=== PATIENT | female | born 1960 | race African-American/Black ===

== ENCOUNTER 2018-06-16 10:31 | Inpatient (IN) | payer OTHER ==
[2018-06-16 12:44] VITALS: BMI 22.4
--- NOTE | 2018-06-16 13:14 | HP ---
COWS - Scale Resting Pulse: 0= [place] 80 or Below Sweatin= Chills/Flushing Restless Observation: 3= Extraneous Movement Pupil Size: 1= Pupils >than Normal Bone or Joint Aches: 2= Severe Diffuse Aches Runny Nose/ Eye Tearin= Runny Nose/Eyes GI Upset > 30mins: 2= Nausea/Diarrhea Tremor Observation: 2= Slight Tremor Visible Yawning Observation: 2= >3x During Session Anxiety or Irritability: 2=Irritable/Anxious Goose Flesh Skin: 0=Smooth Skin COWS Score: 17 CIWA Score Nausea/Vomitin Muscle Tremors: 2 Anxiety: 2 Agitation: 2 Paroxysmal Sweats: 1-Minimal Palms Moist Orientation: 0-Oriented Tacttile Disturbances: 1-Very Mild Itch/Numbness Auditory Disturbances: 1-Very Mild Visual Disturbances: 0-None Headache: 2-Mild CIWA-Ar Total Score: 13 - Admission Criteria [facility] Guidelines: Admission for Medically Managed Detox: Requires at least one of the followin. CIWA greater than 12 2. Seizures within the past 24 hours 3. Delirium tremens within the past 24 hours 4. Hallucinations within the past 24 hours 5. Acute intervention needed for co occurring medical disorder 6. Acute intervention needed for co occurring psychiatric disorder 7. Severe withdrawal that cannot be handled at a lower level of care (continued vomiting, continued diarrhea, abnormal vital signs) requiring intravenous medication and/or fluids 8. Patient presents the following: CIWA greater than 12 Admission Criteria Met: Admission criteria met Admission ROS S - [facility] Chief Complaint: i need help to stop using heroin,xanax Allergies/Adverse Reactions: Allergies Allergy/AdvReac Type Severity Reaction Status Date / Time No Known Allergies Allergy Verified 06/16/18 16:42 History of Present Illness: this 58 years old female with heroin and xanax dependence,seeking detox, withdrawal symptom,last treatment in rehab 07/04/13 to 08/01/13 [facility] hypertension nicotine dependence weight loss longest sobriety 8 months hiv since 2002 Exam Limitations: No Limitations - Ebola screening Have you traveled outside of the country in the last 21 days: No (N) Have you had contact with anyone from an Ebola affected area: No Have you been sick,other than usual withdrawal symptoms: No Do you have a fever: No - Review of Systems Constitutional: Chills, Loss of Appetite, Malaise, Night Sweats, Changes in sleep, Weakness, Unintentional Wgt. Loss EENT: reports: Tearing, Nose Congestion Respiratory: reports: No Symptoms reported Cardiac: reports: No Symptoms Reported GI: reports: Nausea, Poor Appetite, Abdominal cramping : reports: No Symptoms Reported Musculoskeletal: reports: Back Pain, Joint Pain, Muscle Pain, Joint Stiffness Integumentary: reports: Dryness Neuro: reports: Headache, Tremors Endocrine: reports: No Symptoms Reported Hematology: reports: No Symptoms Reported Psychiatric: reports: No Sypmtoms Reported, Judgement Intact, Mood/Affect Appropiate, Orientated x3, Agitated (insomnia) Patient History - Patient Medical History Hx Anemia: No Hx Asthma: No Hx Chronic Obstructive Pulmonary Disease (COPD): No Hx Cancer: No Hx Cardiac Disorders: No Hx Congestive Heart Failure: No Hx Hypertension: Yes (onmed) Hx Pacemaker: No HX Cerebrovascular Accident: No Hx Seizures: No Hx Dementia: No Hx Diabetes: No Hx Gastrointestinal Disorders: No Hx Liver Disease: No Hx Genitourinary Disorders: No Hx Sexually Transmitted Disorders: No Hx Renal Disease (ESRD): No Hx Thyroid Disease: No Hx Human Immunodeficiency Virus (HIV): Yes (2002-tx'ed at [facility]-on tx can't recall names ) Hx Hepatitis C: No Hx Depression: No Hx Suicide Attempt: No Hx Bipolar Disorder: No Hx Schizophrenia: No Other Medical History: no suicidal,no homicidal - Patient Surgical History Past Surgical History: No - PPD History Previous Implant?: Yes Documented Results: Negative w/o proof Implanted On Prior [facility] Admission?: Yes Date: 07/06/13 PPD to be Administered?: Yes - Reproductive History Last Menstrual Period: 07/03/07 Patient : No - Smoking Cessation Smoking history: Current every day smoker Have you smoked in the past 12 months: Yes Aproximately how many cigarettes per day: 4 Cigars Per Day: 0 Hx Chewing Tobacco Use: No Initiated information on smoking cessation: Yes 'Breaking Loose' booklet given: 06/16/18 - Substance & Tx. History Hx Alcohol Use: No Hx Substance Use: Yes Substance Use Type: Heroin, Tranquilizers Hx Substance Use Treatment: Yes ([facility] rehab 07/01/13 to 08/01/13) - Substances Abused Heroin Route: Injection Frequency: Daily Amount used: 5 bags Age of first use: 58 Date of Last Use: 06/16/18 Alprazolam (Xanax) Route: Oral Frequency: 1-3 times last 30 days Amount used: 2 mgs Age of first use: 58 Date of Last Use: 06/11/18 Family Disease History - Family Disease History Family Disease History: Diabetes: Mother, Other: Sister (chrons disease ) Admission Physical Exam [facility] - Vital Signs Vital Signs: Vital Signs - 24 hr 06/16/18 12:36 Temperature 97.8 F Pulse Rate 62 Respiratory 18 Rate Blood Pressure 120/71 - Physical General Appearance: Yes: Moderate Distress, Tremorous, Irritable, Sweating, Anxious HEENTM: Yes: Pharynx Normal Respiratory: Yes: Lungs Clear, Normal Breath Sounds, No Respiratory Distress Neck: Yes: Within Normal Limits, Supple, Trachea in good position Breast: Yes: Breast Exam Deferred Cardiology: Yes: Within Normal Limits, Regular Rhythm, Regular Rate, S1, S2 Abdominal: Yes: Within Normal Limits, Normal Bowel Sounds, Non Tender, Flat, Soft Genitourinary: Yes: Within Normal Limits Back: Yes: Muscle Spasm Musculoskeletal: Yes: Back pain, Joint Stiffness, Muscle Pain Extremities: Yes: Tremors Neurological: Yes: product sales representative II-XII NML intact, Fully Oriented, Alert, Motor Strength 5/5 Integumentary: Yes: Dry, Track Angulo Lymphatic: Yes: Within Normal Limits - Diagnostic (1) Opioid dependence with withdrawal Current Visit: Yes Status: Acute (2) Uncomplicated sedative, hypnotic or anxiolytic withdrawal Current Visit: Yes Status: Acute (3) Essential hypertension Current Visit: Yes Status: Acute (4) HIV (human immunodeficiency virus infection) Current Visit: No Status: Acute (5) Weight loss Current Visit: Yes Status: Acute (6) Insomnia Current Visit: Yes Status: Acute Cleared for Admission [facility] - Detox or Rehab [facility] Level of Care: Medically Managed Detox Regimen/Protocol: Methadone [facility] Breath Alcohol Content Breath Alcohol Content: 0 Urine Drug Screen - Results Drug Screen Negative: No Urine Drug Screen Results: OPI-Opiates, BZO-Benzodiazepines, OXY-Oxycodone
[2018-06-16] MEDS ORDERED: LOPERAMIDE HCL 2 MG CAPSULE PO PRN (13:34)
[2018-06-16] MEDS ORDERED: MAG HYDROX/AL HYDROX/SIMETH 30 ML UNIT-DOSE CUP PO PRN (13:34)
[2018-06-16] MEDS ORDERED: MAGNESIUM CITRATE 300 ML BOTTLE PO PRN (13:34)
[2018-06-16] MEDS ORDERED: ACETAMINOPHEN 325 MG TABLET (FP) PO PRN (13:34)
[2018-06-16] MEDS ORDERED: MAGNESIUM HYDROX 2400MG/30ML ORAL SUSPENSION 30 ML CUP PO PRN (13:34)
[2018-06-16] MEDS ORDERED: P-EPHED 60MG/TRIPROLIDI 2.5MG TABLET PO PRN (13:34)
[2018-06-16] MEDS ORDERED: guaiFENesin/D-METHORPHAN HB 10 ML UNIT-DOSE CUPS PO PRN (13:34)
[2018-06-16] MEDS ORDERED: MENTHOL/PHENOL 1 EACH UD MM PRN (13:34)
[2018-06-16] MEDS ORDERED: IBUPROFEN 400 MG TABLET (FP) PO PRN (13:34)
[2018-06-16] MEDS ORDERED: METHADONE HCL 10 MG TABLET (FOR DETOX USE ONLY) PO ONE ×2 (13:34→23:00)
[2018-06-16] MEDS: diazePAM 5 MG TABLET PO PRN ×2 (17:19→22:31)
[2018-06-16] MEDS: THIAMINE HCL 100 MG TABLET (FP) PO SCH (22:31)
[2018-06-16] MEDS: MELATONIN 5 MG TABLETS PO PRN (22:33)
[2018-06-16 23:45] LABS: URINE APPEARANCE TURBID; URINE BILIRUBIN NEGATIVE (<2.0 mg/dL); URINE COLOR AMBER; URINE GLUCOSE (UA) NEGATIVE (NEGATIVE); URINE KETONE NEGATIVE (NEGATIVE); URINE LEUK ESTERASE NEGATIVE (NEGATIVE); URINE NITRITE NEGATIVE (NEGATIVE); URINE PROTEIN 1+ (NEGATIVE); URINE UROBILINOGEN NEGATIVE mg/dL (0.2-1.0)
[2018-06-16 23:50] LABS: EPI CELLS FEW /HPF (FEW); URINE BACTERIA RARE /hpf (NONE SEEN); URINE MUCUS MANY
[2018-06-17] MEDS ORDERED: METHADONE HCL 10 MG TABLET (FOR DETOX USE ONLY) PO ONE (10:00)
[2018-06-17] MEDS ORDERED: amLODIPine BESYLATE 5 MG TABLET (FP) PO SCH (10:00)
[2018-06-17] MEDS: PRENATAL VITAMINS W/ FOLIC ACID TABLET (FP) PO SCH (10:17)
--- NOTE | 2018-06-17 10:24 | PN ---
S CIWA - CIWA Score Nausea/Vomitin-No Nausea/No Vomiting Muscle Tremors: None Anxiety: 4-Mod. Anxious/Guarded Agitation: 1-Slight > Activity Paroxysmal Sweats: No Perspiration Orientation: 1-Uncertain about Date Tacttile Disturbances: 0-None Auditory Disturbances: 0-None Visual Disturbances: 0-None Headache: 3-Moderate CIWA-Ar Total Score: 9 BHS COWS - Scale Resting Pulse: 1= [place] 81-100 Sweatin= No chills or Flushing Restless Observation: 1= Difficult to Sit Still Pupil Size: 1= Pupils >than Normal Bone or Joint Aches: 1= Mild Discomfort Runny Nose/ Eye Tearin= None GI Upset > 30mins: 0= None Tremor Observation of Outstretched Hands: 0= None Yawning Observation: 1= 1-2x During Session Anxiety or Irritability: 2=Irritable/Anxious Goose Flesh Skin: 0=Smooth Skin COWS Score: 7 S Progress Note (SOAP) Subjective: PATIENT C/O HEADACHE, INTERRUPTED SLEEP AND ANXIETY. Objective: 06/17/18 10:21 Vital Signs Temperature 95.9 F L 06/17/18 06:00 Pulse Rate 56 L 06/17/18 07:36 Respiratory Rate 16 06/17/18 07:36 Blood Pressure 170/83 06/17/18 07:36 O2 Sat by Pulse Oximetry (%) Laboratory Tests 06/16/18 15:44 Urine Color Jen Urine Appearance Turbid Urine pH 5.0 Ur Specific [place] 1.024 Urine Protein 1+ H Urine Glucose (UA) Negative Urine Ketones Negative Urine Blood Negative Urine Nitrite Negative Urine Bilirubin Negative Urine Urobilinogen Negative Ur Leukocyte Esterase Negative Urine WBC (Auto) 1 Urine RBC (Auto) <1 Ur Epithelial Cells Few Urine Bacteria Rare Urine Mucus Many PE: ALERT AND ORIENTED X NAME AND PLACE, UNSURE OF DATE SKIN WARM AND DRY CAR S1S2 RESP CTA BL EXT FULL ROM,NO TREMORS Assessment: 06/17/18 10:22 A/P ELEVATED BP WITHDRAWAL SX Plan: CONTINUE DETOX INCREASE NORVASC TO 10MG STARTING TODAY RAJESH DIET CONTINUE TO MONITOR CLINICALLY 06/17/18 10:22
[2018-06-17] MEDS: diazePAM 5 MG TABLET PO PRN ×2 (11:51→22:23)
[2018-06-17] MEDS: amLODIPine BESYLATE 10 MG TABLET (FP) PO SCH (13:15)
[2018-06-17 14:48] LABS: HEMOGLOBIN 13.1 GM/dL (10.7-15.3); MCH 27.1 pg (25.7-33.7); MCHC 31.3 g/dl (32.0-36.0); MEAN CELL VOLUME 86.6 fl (80-96); PLATELET COUNT 222 K/MM3 (134-434); RBC 4.85 M/mm3 (3.60-5.2); WHITE BLOOD COUNT 4.5 K/mm3 (4.0-10.0)
[2018-06-17 14:58] LABS: ALBUMIN 3.6 g/dl (3.4-5.0); ALK PHOS 112 U/L (45-117); ANION GAP 6 MMOL/L (8-16); BILIRUBIN,TOTAL 0.2 mg/dL (0.2-1); BLOOD UREA NITROGEN 10 mg/dL (7-18); CHLORIDE 106 mmol/L (98-107); CO2 25 mmol/L (21-32); CREATININE 0.6 mg/dL (0.55-1.3); GLUCOSE,RANDOM 80 mg/dL (74-106); POTASSIUM 4.1 mmol/L (3.5-5.1); SGOT/AST 15 U/L (15-37); SGPT/ALT 15 U/L (13-61); SODIUM 137 mmol/L (136-145); TOT PROT 9.3 g/dl (6.4-8.2)
[2018-06-17] MEDS: THIAMINE HCL 100 MG TABLET (FP) PO SCH (22:22)
[2018-06-17] MEDS: MELATONIN 5 MG TABLETS PO PRN (22:23)
[2018-06-18] MEDS: hydrOXYzine PAMOATE 25 MG CAPSULE (FP) PO PRN (09:58)
[2018-06-18] MEDS: amLODIPine BESYLATE 10 MG TABLET (FP) PO SCH (09:58)
[2018-06-18] MEDS: PRENATAL VITAMINS W/ FOLIC ACID TABLET (FP) PO SCH (09:58)
[2018-06-18] MEDS ORDERED: METHADONE HCL 5 MG TABLET (FOR DETOX USE ONLY) PO ONE (10:00)
--- NOTE | 2018-06-18 10:47 | PN ---
[facility] CIWA - CIWA Score Nausea/Vomitin-Mild Nausea/No Vomiting Muscle Tremors: 2 Anxiety: 2 Agitation: 2 Paroxysmal Sweats: 1-Minimal Palms Moist Orientation: 0-Oriented Tacttile Disturbances: 0-None Auditory Disturbances: 0-None Visual Disturbances: 0-None Headache: 2-Mild CIWA-Ar Total Score: 10 BHS COWS - Scale Resting Pulse: 0= [place] 80 or Below Sweatin= Chills/Flushing Restless Observation: 0= Sits Still Pupil Size: 0= Normal to Room Light Bone or Joint Aches: 2= Severe Diffuse Aches Runny Nose/ Eye Tearin= Nasal Congestion GI Upset > 30mins: 1= Stomach Cramp Tremor Observation of Outstretched Hands: 1= Tremor [place], Not Seen Yawning Observation: 2= >3x During Session Anxiety or Irritability: 1=Feels Anxious/Irritable Goose Flesh Skin: 0=Smooth Skin COWS Score: 9 BHS Progress Note (SOAP) Subjective: body aches tremor sweating headaches history of hypertension adding lisinopril 10 mg po bid Objective: 06/18/18 10:48 Vital Signs Temperature 98.0 F 06/18/18 09:26 Pulse Rate 71 06/18/18 09:26 Respiratory Rate 18 06/18/18 09:26 Blood Pressure 173/97 H 06/18/18 09:26 O2 Sat by Pulse Oximetry (%) Laboratory Last Values WBC 4.5 K/mm3 (4.0-10.0) 06/17/18 10:30 RBC 4.85 M/mm3 (3.60-5.2) 06/17/18 10:30 Hgb 13.1 GM/dL (10.7-15.3) 06/17/18 10:30 Hct 42.0 % (32.4-45.2) 06/17/18 10:30 MCV 86.6 fl (80-96) 06/17/18 10:30 MCH 27.1 pg (25.7-33.7) 06/17/18 10:30 MCHC 31.3 g/dl (32.0-36.0) L 06/17/18 10:30 RDW 14.0 % (11.6-15.6) 06/17/18 10:30 Plt Count 222 K/MM3 (134-434) D 06/17/18 10:30 MPV 10.0 fl (7.5-11.1) 06/17/18 10:30 Sodium 137 mmol/L (136-145) 06/17/18 10:30 Potassium 4.1 mmol/L (3.5-5.1) 06/17/18 10:30 Chloride 106 mmol/L (98-107) 06/17/18 10:30 Carbon Dioxide 25 mmol/L (21-32) 06/17/18 10:30 Anion Gap 6 MMOL/L (8-16) L 06/17/18 10:30 BUN 10 mg/dL (7-18) 06/17/18 10:30 Creatinine 0.6 mg/dL (0.55-1.3) 06/17/18 10:30 Creat Clearance w eGFR > 60 (>60) 06/17/18 10:30 Random Glucose 80 mg/dL (74-106) 06/17/18 10:30 Calcium 9.0 mg/dL (8.5-10.1) 06/17/18 10:30 Total Bilirubin 0.2 mg/dL (0.2-1) 06/17/18 10:30 AST 15 U/L (15-37) 06/17/18 10:30 ALT 15 U/L (13-61) 06/17/18 10:30 Alkaline Phosphatase 112 U/L (45-117) 06/17/18 10:30 Total Protein 9.3 g/dl (6.4-8.2) H 06/17/18 10:30 Albumin 3.6 g/dl (3.4-5.0) 06/17/18 10:30 Urine Color Jen 06/16/18 15:44 Urine Appearance Turbid 06/16/18 15:44 Urine pH 5.0 (5.0-8.0) 06/16/18 15:44 Ur Specific [place] 1.024 (1.010-1.035) 06/16/18 15:44 Urine Protein 1+ (NEGATIVE) H 06/16/18 15:44 Urine Glucose (UA) Negative (NEGATIVE) 06/16/18 15:44 Urine Ketones Negative (NEGATIVE) 06/16/18 15:44 Urine Blood Negative (NEGATIVE) 06/16/18 15:44 Urine Nitrite Negative (NEGATIVE) 06/16/18 15:44 Urine Bilirubin Negative (<2.0 mg/dL) 06/16/18 15:44 Urine Urobilinogen Negative mg/dL (0.2-1.0) 06/16/18 15:44 Ur Leukocyte Esterase Negative (NEGATIVE) 06/16/18 15:44 Urine WBC (Auto) 1 /hpf (3-5) 06/16/18 15:44 Urine RBC (Auto) <1 /hpf (0-3) 06/16/18 15:44 Ur Epithelial Cells Few /HPF (FEW) 06/16/18 15:44 Urine Bacteria Rare /hpf (NONE SEEN) 06/16/18 15:44 Urine Mucus Many 06/16/18 15:44 lab noted Assessment: 06/18/18 10:48 withdrawal sx 06/18/18 10:48 hypertension Plan: continue detox lisinopril 10 mg po bid
[2018-06-18] MEDS: diazePAM 5 MG TABLET PO PRN ×2 (11:28→22:30)
[2018-06-18] MEDS: LISINOPRIL 10 MG TABLET (FP) PO SCH ×2 (11:28→22:29)
[2018-06-18] MEDS: THIAMINE HCL 100 MG TABLET (FP) PO SCH (22:29)
[2018-06-18] MEDS: MELATONIN 5 MG TABLETS PO PRN (22:31)
[2018-06-19] MEDS ORDERED: METHADONE HCL 5 MG TABLET (FOR DETOX USE ONLY) PO ONE (10:00)
[2018-06-19] MEDS: diazePAM 5 MG TABLET PO PRN (10:23)
[2018-06-19] MEDS: LISINOPRIL 10 MG TABLET (FP) PO SCH ×2 (10:23→22:01)
[2018-06-19] MEDS: PRENATAL VITAMINS W/ FOLIC ACID TABLET (FP) PO SCH (10:23)
[2018-06-19] MEDS: amLODIPine BESYLATE 10 MG TABLET (FP) PO SCH (10:23)
--- NOTE | 2018-06-19 12:47 | PN ---
BHS Progress Note (SOAP) Subjective: body ache anxiety muscle cramping joints pain trouble concentrating low energy overly worried Objective: 06/19/18 12:47 Vital Signs Temperature 97.1 F L 06/19/18 09:17 Pulse Rate 67 06/19/18 09:17 Respiratory Rate 16 06/19/18 09:17 Blood Pressure 137/85 06/19/18 09:17 O2 Sat by Pulse Oximetry (%) Laboratory Last Values WBC 4.5 K/mm3 (4.0-10.0) 06/17/18 10:30 RBC 4.85 M/mm3 (3.60-5.2) 06/17/18 10:30 Hgb 13.1 GM/dL (10.7-15.3) 06/17/18 10:30 Hct 42.0 % (32.4-45.2) 06/17/18 10:30 MCV 86.6 fl (80-96) 06/17/18 10:30 MCH 27.1 pg (25.7-33.7) 06/17/18 10:30 MCHC 31.3 g/dl (32.0-36.0) L 06/17/18 10:30 RDW 14.0 % (11.6-15.6) 06/17/18 10:30 Plt Count 222 K/MM3 (134-434) D 06/17/18 10:30 MPV 10.0 fl (7.5-11.1) 06/17/18 10:30 Sodium 137 mmol/L (136-145) 06/17/18 10:30 Potassium 4.1 mmol/L (3.5-5.1) 06/17/18 10:30 Chloride 106 mmol/L (98-107) 06/17/18 10:30 Carbon Dioxide 25 mmol/L (21-32) 06/17/18 10:30 Anion Gap 6 MMOL/L (8-16) L 06/17/18 10:30 BUN 10 mg/dL (7-18) 06/17/18 10:30 Creatinine 0.6 mg/dL (0.55-1.3) 06/17/18 10:30 Creat Clearance w eGFR > 60 (>60) 06/17/18 10:30 Random Glucose 80 mg/dL (74-106) 06/17/18 10:30 Calcium 9.0 mg/dL (8.5-10.1) 06/17/18 10:30 Total Bilirubin 0.2 mg/dL (0.2-1) 06/17/18 10:30 AST 15 U/L (15-37) 06/17/18 10:30 ALT 15 U/L (13-61) 06/17/18 10:30 Alkaline Phosphatase 112 U/L (45-117) 06/17/18 10:30 Total Protein 9.3 g/dl (6.4-8.2) H 06/17/18 10:30 Albumin 3.6 g/dl (3.4-5.0) 06/17/18 10:30 TSH 0.31 uIU/ml (0.358-3.74) L 06/19/18 06:00 Urine Color Jen 06/16/18 15:44 Urine Appearance Turbid 06/16/18 15:44 Urine pH 5.0 (5.0-8.0) 06/16/18 15:44 Ur Specific [place] 1.024 (1.010-1.035) 06/16/18 15:44 Urine Protein 1+ (NEGATIVE) H 06/16/18 15:44 Urine Glucose (UA) Negative (NEGATIVE) 06/16/18 15:44 Urine Ketones Negative (NEGATIVE) 06/16/18 15:44 Urine Blood Negative (NEGATIVE) 06/16/18 15:44 Urine Nitrite Negative (NEGATIVE) 06/16/18 15:44 Urine Bilirubin Negative (<2.0 mg/dL) 06/16/18 15:44 Urine Urobilinogen Negative mg/dL (0.2-1.0) 06/16/18 15:44 Ur Leukocyte Esterase Negative (NEGATIVE) 06/16/18 15:44 Urine WBC (Auto) 1 /hpf (3-5) 06/16/18 15:44 Urine RBC (Auto) <1 /hpf (0-3) 06/16/18 15:44 Ur Epithelial Cells Few /HPF (FEW) 06/16/18 15:44 Urine Bacteria Rare /hpf (NONE SEEN) 06/16/18 15:44 Urine Mucus Many 06/16/18 15:44 RPR Titer Nonreactive (NONREACTIVE) 06/17/18 10:30 lab noted encourage the patient to bring in lab result to infectious disease specialist continue monitoring rule out hyper thyroidism 06/19/18 12:49 Assessment: 06/19/18 12:51 withdrawal sx Plan: continue detox
[2018-06-19] MEDS: THIAMINE HCL 100 MG TABLET (FP) PO SCH (22:01)
[2018-06-19] MEDS: MELATONIN 5 MG TABLETS PO PRN (22:02)
[2018-06-19] MEDS: hydrOXYzine PAMOATE 25 MG CAPSULE (FP) PO PRN (22:03)
[2018-06-20] MEDS: LISINOPRIL 10 MG TABLET (FP) PO SCH ×2 (09:47→22:12)
[2018-06-20] MEDS: amLODIPine BESYLATE 10 MG TABLET (FP) PO SCH (09:47)
[2018-06-20] MEDS: PRENATAL VITAMINS W/ FOLIC ACID TABLET (FP) PO SCH (09:47)
[2018-06-20] MEDS ORDERED: METHADONE HCL 10 MG TABLET (FOR DETOX USE ONLY) PO ONE (10:00)
--- NOTE | 2018-06-20 10:47 | PN ---
BHS Progress Note (SOAP) Subjective: feeling beytter less tremor little sweat mild body aches tolerated food better Objective: 06/20/18 10:46 Vital Signs Temperature 97.7 F 06/20/18 09:57 Pulse Rate 67 06/20/18 09:57 Respiratory Rate 16 06/20/18 09:57 Blood Pressure 148/87 06/20/18 09:57 O2 Sat by Pulse Oximetry (%) Laboratory Last Values WBC 4.5 K/mm3 (4.0-10.0) 06/17/18 10:30 RBC 4.85 M/mm3 (3.60-5.2) 06/17/18 10:30 Hgb 13.1 GM/dL (10.7-15.3) 06/17/18 10:30 Hct 42.0 % (32.4-45.2) 06/17/18 10:30 MCV 86.6 fl (80-96) 06/17/18 10:30 MCH 27.1 pg (25.7-33.7) 06/17/18 10:30 MCHC 31.3 g/dl (32.0-36.0) L 06/17/18 10:30 RDW 14.0 % (11.6-15.6) 06/17/18 10:30 Plt Count 222 K/MM3 (134-434) D 06/17/18 10:30 MPV 10.0 fl (7.5-11.1) 06/17/18 10:30 Sodium 137 mmol/L (136-145) 06/17/18 10:30 Potassium 4.1 mmol/L (3.5-5.1) 06/17/18 10:30 Chloride 106 mmol/L (98-107) 06/17/18 10:30 Carbon Dioxide 25 mmol/L (21-32) 06/17/18 10:30 Anion Gap 6 MMOL/L (8-16) L 06/17/18 10:30 BUN 10 mg/dL (7-18) 06/17/18 10:30 Creatinine 0.6 mg/dL (0.55-1.3) 06/17/18 10:30 Creat Clearance w eGFR > 60 (>60) 06/17/18 10:30 Random Glucose 80 mg/dL (74-106) 06/17/18 10:30 Calcium 9.0 mg/dL (8.5-10.1) 06/17/18 10:30 Total Bilirubin 0.2 mg/dL (0.2-1) 06/17/18 10:30 AST 15 U/L (15-37) 06/17/18 10:30 ALT 15 U/L (13-61) 06/17/18 10:30 Alkaline Phosphatase 112 U/L (45-117) 06/17/18 10:30 Total Protein 9.3 g/dl (6.4-8.2) H 06/17/18 10:30 Albumin 3.6 g/dl (3.4-5.0) 06/17/18 10:30 TSH 0.31 uIU/ml (0.358-3.74) L 06/19/18 06:00 Urine Color Jen 06/16/18 15:44 Urine Appearance Turbid 06/16/18 15:44 Urine pH 5.0 (5.0-8.0) 06/16/18 15:44 Ur Specific [place] 1.024 (1.010-1.035) 06/16/18 15:44 Urine Protein 1+ (NEGATIVE) H 06/16/18 15:44 Urine Glucose (UA) Negative (NEGATIVE) 06/16/18 15:44 Urine Ketones Negative (NEGATIVE) 06/16/18 15:44 Urine Blood Negative (NEGATIVE) 06/16/18 15:44 Urine Nitrite Negative (NEGATIVE) 06/16/18 15:44 Urine Bilirubin Negative (<2.0 mg/dL) 06/16/18 15:44 Urine Urobilinogen Negative mg/dL (0.2-1.0) 06/16/18 15:44 Ur Leukocyte Esterase Negative (NEGATIVE) 06/16/18 15:44 Urine WBC (Auto) 1 /hpf (3-5) 06/16/18 15:44 Urine RBC (Auto) <1 /hpf (0-3) 06/16/18 15:44 Ur Epithelial Cells Few /HPF (FEW) 06/16/18 15:44 Urine Bacteria Rare /hpf (NONE SEEN) 06/16/18 15:44 Urine Mucus Many 06/16/18 15:44 RPR Titer Nonreactive (NONREACTIVE) 06/17/18 10:30 lab noted patient agrees to follow up with infectious disease specialist for hypertension Assessment: 06/20/18 10:47 mild withdrawal sx Plan: continue detox
--- NOTE | 2018-06-20 15:29 | CONSULT ---
[facility] Psychiatric Consult - Data Date of interview: 06/20/18 Admission source: [facility] Identifying data: Director Of Cath Lab approached patient for psychiatric consultation but patient refused to be seen by consumer loan underwriter. Patient stated, " i don't need to see you. "
[2018-06-20 18:34] VITALS: PULSE 71
[2018-06-20 21:50] VITALS: BP 136/87; TEMP 96.5
[2018-06-20] MEDS: MELATONIN 5 MG TABLETS PO PRN (22:12)
[2018-06-20] MEDS: THIAMINE HCL 100 MG TABLET (FP) PO SCH (22:12)
[2018-06-21] MEDS ORDERED: METHADONE HCL 5 MG TABLET (FOR DETOX USE ONLY) PO ONE (06:00)
--- NOTE | 2018-06-21 17:20 | DS ---
[facility] Detox Discharge Summary Admission Date: 06/16/18 Discharge Date: 06/21/18 - History Present History: Opioid Dependence, Sedative Dependence Additional Comments: PATIENT LEFT DETOX UNIT BEFORE TIME OF ARRIVAL OF [employer] ATTENDANT ON UNIT. THUS, PRE- DISCHARGE ASSESSMENT UNABLE TO BE DONE. PER PATIENT'S UNIT COUNSELOR, PATIENT WILL PURSUE OUTPATIENT 12-STEP / NA SUPPORT GROUP MEETINGS FOR AFTERCARE. Pertinent Past History: HTN, H.I.V., Weight Loss, Insomnia. - Physical Exam Results Vital Signs: Vital Signs Temperature 96.5 F L 06/20/18 21:49 Pulse Rate 71 06/20/18 21:49 Respiratory Rate 18 06/21/18 03:30 Blood Pressure 136/87 06/20/18 21:49 O2 Sat by Pulse Oximetry (%) Pertinent Admission Physical Exam Findings: WITHDRAWAL SYMPTOMS. Laboratory Tests 06/16/18 06/17/18 06/17/18 15:44 10:30 10:30 WBC 4.5 RBC 4.85 Hgb 13.1 Hct 42.0 MCV 86.6 MCH 27.1 MCHC 31.3 L RDW 14.0 Plt Count 222 D MPV 10.0 Sodium 137 Potassium 4.1 Chloride 106 Carbon Dioxide 25 Anion Gap 6 L BUN 10 Creatinine 0.6 Creat Clearance w eGFR > 60 Random Glucose 80 Calcium 9.0 Total Bilirubin 0.2 AST 15 ALT 15 Alkaline Phosphatase 112 Total Protein 9.3 H Albumin 3.6 TSH Urine Color Jen Urine Appearance Turbid Urine pH 5.0 Ur Specific [place] 1.024 Urine Protein 1+ H Urine Glucose (UA) Negative Urine Ketones Negative Urine Blood Negative Urine Nitrite Negative Urine Bilirubin Negative Urine Urobilinogen Negative Ur Leukocyte Esterase Negative Urine WBC (Auto) 1 Urine RBC (Auto) <1 Ur Epithelial Cells Few Urine Bacteria Rare Urine Mucus Many RPR Titer 06/17/18 06/19/18 10:30 06:00 WBC RBC Hgb Hct MCV MCH MCHC RDW Plt Count MPV Sodium Potassium Chloride Carbon Dioxide Anion Gap BUN Creatinine Creat Clearance w eGFR Random Glucose Calcium Total Bilirubin AST ALT Alkaline Phosphatase Total Protein Albumin TSH 0.31 L Urine Color Urine Appearance Urine pH Ur Specific [place] Urine Protein Urine Glucose (UA) Urine Ketones Urine Blood Urine Nitrite Urine Bilirubin Urine Urobilinogen Ur Leukocyte Esterase Urine WBC (Auto) Urine RBC (Auto) Ur Epithelial Cells Urine Bacteria Urine Mucus RPR Titer Nonreactive LABS NOTED. - Treatment Hospital Course: Detox Protocol Followed, Detoxed Safely, Responded well, Discharged Condition Good Patient has Accepted a Rehab Referral to: PT WILL PURSUE LOCAL 12-STEP/NA OP SUPPORT GROUP MEETINGS FOR AFTERCARE. - Medication Discharge Medications: Ambulatory Orders Atazanavir [Reyataz -] 300 mg PO DAILY #30 capsule 07/30/13 Emtricitabine/Tenofovir [Truvada -] 1 tab PO DAILY #30 tablet 07/30/13 Ritonavir [Norvir -] 100 mg PO DAILY #30 tab 07/30/13 Amlodipine Besylate [Norvasc -] 5 mg PO DAILY #30 tablet 06/20/18 Lisinopril [Prinivil] 10 mg PO BID #14 tablet 06/20/18 - Diagnosis (1) HIV (human immunodeficiency virus infection) Status: Acute Qualifiers: HIV symptom status: unspecified Qualified Code(s): B20 - Human immunodeficiency virus [HIV] disease (2) Opioid dependence with withdrawal Status: Acute (3) Uncomplicated sedative, hypnotic or anxiolytic withdrawal Status: Acute (4) Weight loss Status: Acute (5) Insomnia Status: Acute Qualifiers: Insomnia type: unspecified Qualified Code(s): G47.00 - Insomnia, unspecified (6) Essential hypertension Status: Chronic - AMA Did Patient Leave Against Medical Advice: No
== END 2018-06-21 06:10 | disposition home or self-care (01) | DRG 773 ==
LOC: YASAS 10:31 → Y6N 14:29 → Y3N 06-17 20:44
PROC: HZ2ZZZZ Detoxification Services for Substance Abuse Treatment (ICD-10-PCS; principal; 2018-06-16)
DX: F11.23 Opioid dependence with withdrawal (principal); F13.230 Sedative, hypnotic or anxiolytic dependence with withdrawal, uncomplicated; F17.210 Nicotine dependence, cigarettes, uncomplicated; I10 Essential (primary) hypertension; Z21 Asymptomatic human immunodeficiency virus [HIV] infection status; G47.00 Insomnia, unspecified; S50.01XA Contusion of right elbow, initial encounter; X58.XXXA Exposure to other specified factors, initial encounter; Y93.89 Activity, other specified; Y92.239 Unspecified place in hospital as the place of occurrence of the external cause
CPT/HCPCS: 36415; 80053; 81003; 81015; 84443; 85027; 86593

== ENCOUNTER 2018-08-05 13:36 | Inpatient (IN) | payer OTHER ==
[2018-08-05 14:55] VITALS: BMI 22.1
--- NOTE | 2018-08-05 19:17 | HP ---
"COWS - Scale Resting Pulse: 0= [place] 80 or Below Sweatin=Flushed/Facial Moisture Restless Observation: 3= Extraneous Movement Pupil Size: 2= Moderately Dilated (Pupils = 5 mm) Bone or Joint Aches: 0= None Runny Nose/ Eye Tearin= Runny Nose/Eyes GI Upset > 30mins: 2= Nausea/Diarrhea Tremor Observation: 0= None Yawning Observation: 0= None Anxiety or Irritability: 2=Irritable/Anxious Goose Flesh Skin: 0=Smooth Skin COWS Score: 13 CIWA Score - Admission Criteria OAS Guidelines: Admission for Medically Managed Detox: Requires at least one of the followin. CIWA greater than 12 2. Seizures within the past 24 hours 3. Delirium tremens within the past 24 hours 4. Hallucinations within the past 24 hours 5. Acute intervention needed for co occurring medical disorder 6. Acute intervention needed for co occurring psychiatric disorder 7. Severe withdrawal that cannot be handled at a lower level of care (continued vomiting, continued diarrhea, abnormal vital signs) requiring intravenous medication and/or fluids 8. Admission ROS [facility] Chief Complaint: Here with heroin withdrawal. Allergies/Adverse Reactions: Allergies Allergy/AdvReac Type Severity Reaction Status Date / Time No Known Allergies Allergy Verified 08/05/18 17:24 History of Present Illness: States here for heroin detox. Heroin use began at age 13. Uses IV. Denies sharing needles and works. Overdose risks and prevention discussed. Marijuana use began at age 13. Nicotine use began at age 13. Longest length of sobriety 8 months. Denies hx seizures, blackouts, or overdoses. Denies pain. Hx: HTN, HIV. States stopping HIV meds while in detox. Hx Insomnia. Denies mental health problems. Denies thoughts of harming self or others. Search Terms: Lavern Quinn, 1960 Search Date: 08/05/2018 07:16:06 PM The Drug Utilization Report below displays all of the controlled substance prescriptions, if any, that your patient has filled in the last twelve months. The information displayed on this report is compiled from pharmacy submissions to the Department, and accurately reflects the information as submitted by the pharmacies. This report was requested by: [employer] | Reference #: [id number] There are no results for the search terms that you entered. Exam Limitations: No Limitations - Ebola screening Have you traveled outside of the country in the last 21 days: No Have you had contact with anyone from an Ebola affected area: No Have you been sick,other than usual withdrawal symptoms: No Do you have a fever: No - Review of Systems Constitutional: Diaphoresis EENT: reports: Blurred Vision, Other (Runny nose) Respiratory: reports: No Symptoms reported Cardiac: reports: No Symptoms Reported GI: reports: No Symptoms Reported : reports: No Symptoms Reported Musculoskeletal: reports: No Symptoms Reported Integumentary: reports: Change in Color (Increased redness and warmth (L) arm injection site) Neuro: reports: No Symptoms reported Endocrine: reports: No Symptoms Reported Hematology: reports: Other (HIV (+)) Psychiatric: reports: Judgement Intact, Orientated x3 Patient History - Patient Medical History Hx Anemia: No Hx Asthma: No Hx Chronic Obstructive Pulmonary Disease (COPD): No Hx Cancer: No Hx Cardiac Disorders: No Hx Congestive Heart Failure: No Hx Hypertension: Yes (onmed) Hx Pacemaker: No HX Cerebrovascular Accident: No Hx Seizures: No Hx Dementia: No Hx Diabetes: No Hx Gastrointestinal Disorders: No Hx Liver Disease: No Hx Genitourinary Disorders: No Hx Sexually Transmitted Disorders: No Hx Renal Disease (ESRD): No Hx Thyroid Disease: No Hx Human Immunodeficiency Virus (HIV): Yes (2002-'ed at [facility]-on tx can't recall names ) Hx Hepatitis C: No Hx Depression: No Hx Suicide Attempt: No Hx Bipolar Disorder: No Hx Schizophrenia: No - Patient Surgical History Past Surgical History: No - PPD History Previous Implant?: Yes Documented Results: Negative w/o proof Implanted On Prior [facility] Admission?: Yes Date: 07/06/13 PPD to be Administered?: Yes - Reproductive History Last Menstrual Period: 07/03/07 - Smoking Cessation Smoking history: Current every day smoker Have you smoked in the past 12 months: Yes Aproximately how many cigarettes per day: 5 Cigars Per Day: 0 Hx Chewing Tobacco Use: No Initiated information on smoking cessation: Yes 'Breaking Loose' booklet given: 08/05/18 - Substance & Tx. History Hx Alcohol Use: No Hx Substance Use: Yes Substance Use Type: Heroin, Marijuana Hx Substance Use Treatment: Yes (detox, rehab) - Substances Abused Heroin Route: Injection Frequency: Daily Amount used: 10 bags Age of first use: 13 Date of Last Use: 08/05/18 Marijuana/Hashish Route: Smoking Frequency: 1-3 times last 30 days Amount used: 1 joint Age of first use: 13 Date of Last Use: 08/05/18 Family Disease History - Family Disease History Family Disease History: Diabetes: Mother, Other: Sister (chrons disease ) Admission Physical Exam [facility] - Vital Signs Vital Signs: Vital Signs - 24 hr 08/05/18 14:54 Temperature 96.8 F L Pulse Rate 63 Respiratory 18 Rate Blood Pressure 129/69 - Physical General Appearance: Yes: Nourished, Mild Distress, Sweating, Anxious HEENTM: Yes: EOMI, Hearing grossly Normal, Normocephalic, NANO (Pupils = 5 mm), Pharynx Normal, Rhinorrhea Respiratory: Yes: Chest Non-Tender, Lungs Clear, Normal Breath Sounds, No Respiratory Distress Neck: Yes: No masses,lesions,Nodules, Supple Breast: Yes: Breast Exam Deferred Cardiology: Yes: Regular Rhythm, Regular Rate, S1, S2 Abdominal: Yes: Non Tender, Flat, Soft, Increased Bowel Sounds Genitourinary: Yes: Within Normal Limits Back: Yes: Normal Inspection Musculoskeletal: Yes: full range of Motion, Gait Steady Extremities: Yes: Normal Capillary Refill, Normal Range of Motion, Non-Tender Neurological: Yes: gallery intern II-XII NML intact, Fully Oriented, Alert, Motor Strength 5/5, Normal Mood/Affect Integumentary: Yes: Normal Color, Warm, Track Angulo, Other (6 cm x 5 cm induration (L) arm area above wrist - very tender to touche, with increased erythema and warmth) Lymphatic: Yes: Within Normal Limits - Diagnostic (1) HIV (human immunodeficiency virus infection) Current Visit: Yes Status: Chronic Qualifiers: HIV symptom status: unspecified Qualified Code(s): B20 - Human immunodeficiency virus [HIV] disease (2) HTN (hypertension) Current Visit: Yes Status: Chronic Qualifiers: Hypertension type: essential hypertension Qualified Code(s): I10 - Essential (primary) hypertension (3) Insomnia Current Visit: Yes Status: Chronic Qualifiers: Insomnia type: unspecified Qualified Code(s): G47.00 - Insomnia, unspecified (4) Opioid dependence with withdrawal Current Visit: Yes Status: Acute (5) Cellulitis Current Visit: Yes Status: Acute Qualifiers: Site of cellulitis: extremity Site of cellulitis of extremity: upper extremity Laterality: left Qualified Code(s): L03.114 - Cellulitis of left upper limb (6) Cannabis dependence Current Visit: Yes Status: Chronic Cleared for Admission [facility] - Detox or Rehab [facility] Level of Care: Medically Managed Detox Regimen/Protocol: Methadone [facility] Breath Alcohol Content Breath Alcohol Content: 0 Urine Pregancy Test - Result Urine Test Results: Negative- NO Line Present Urine Drug Screen - Results Drug Screen Negative: No Urine Drug Screen Results: THC-Marijuana, OPI-Opiates, OXY-Oxycodone Inpatient Rehab Admission - Rehab Decision to Admit Inpatient rehab admission?: No"
[2018-08-05] MEDS ORDERED: MAG HYDROX/AL HYDROX/SIMETH 30 ML UNIT-DOSE CUP PO PRN (20:05)
[2018-08-05] MEDS ORDERED: LOPERAMIDE HCL 2 MG CAPSULE PO PRN (20:05)
[2018-08-05] MEDS ORDERED: METHADONE HCL 10 MG TABLET (FOR DETOX USE ONLY) PO ONE ×2 (20:05→23:00)
[2018-08-05] MEDS ORDERED: MAGNESIUM CITRATE 300 ML BOTTLE PO PRN (20:05)
[2018-08-05] MEDS ORDERED: IBUPROFEN 400 MG TABLET (FP) PO PRN (20:05)
[2018-08-05] MEDS ORDERED: NICOTINE POLACRILEX 2 MG GUM BC PRN (20:05)
[2018-08-05] MEDS ORDERED: MAGNESIUM HYDROX 2400MG/30ML ORAL SUSPENSION 30 ML CUP PO PRN (20:05)
[2018-08-05] MEDS ORDERED: MENTHOL/PHENOL 1 EACH UD MM PRN (20:05)
[2018-08-05] MEDS ORDERED: ACETAMINOPHEN 325 MG TABLET (FP) PO PRN (20:05)
[2018-08-05] MEDS ORDERED: guaiFENesin 200 MG/10 ML 10 ML UNIT-DOSE CUPS PO PRN (20:07)
[2018-08-05] MEDS: diazePAM 5 MG TABLET PO PRN (22:35)
[2018-08-05] MEDS: THIAMINE HCL 100 MG TABLET (FP) PO SCH (22:47)
[2018-08-05] MEDS: CEPHALEXIN MONOHYDRATE 500 MG CAPSULE (UD) PO SCH (23:05)
[2018-08-06] MEDS: CEPHALEXIN MONOHYDRATE 500 MG CAPSULE (UD) PO SCH ×4 (06:33→23:04)
--- NOTE | 2018-08-06 07:34 | PN ---
SERINA Progress Note Note: Patient's blood pressure is B/P 187/94 Vital Signs Temperature 97.3 F L 08/06/18 07:27 Pulse Rate 56 L 08/06/18 07:27 Respiratory Rate 20 08/06/18 07:27 Blood Pressure 187/94 H 08/06/18 07:27 O2 Sat by Pulse Oximetry (%) Action: Clonidine 0.1mg tablet 1 tablet order ordered
[2018-08-06] MEDS ORDERED: cloNIDine HCL 0.1 MG TABLET PO ONE (07:45)
[2018-08-06] MEDS ORDERED: amLODIPine BESYLATE 5 MG TABLET (FP) PO SCH (10:00)
[2018-08-06] MEDS ORDERED: METHADONE HCL 10 MG TABLET (FOR DETOX USE ONLY) PO ONE (10:00)
--- NOTE | 2018-08-06 10:08 | PN ---
[facility] COWS - Scale Resting Pulse: 0= [place] 80 or Below Sweatin=Flushed/Facial Moisture Restless Observation: 1= Difficult to Sit Still Pupil Size: 0= Normal to Room Light Bone or Joint Aches: 2= Severe Diffuse Aches Runny Nose/ Eye Tearin= Nasal Congestion GI Upset > 30mins: 0= None Tremor Observation of Outstretched Hands: 2= Slight Tremor Visible Yawning Observation: 2= >3x During Session Anxiety or Irritability: 2=Irritable/Anxious Goose Flesh Skin: 0=Smooth Skin COWS Score: 12 S Progress Note (SOAP) Subjective: sweats irritable agitation anxiety body aches Objective: 08/06/18 10:15 Vital Signs Temperature 97.7 F 08/06/18 10:12 Pulse Rate 59 L 08/06/18 10:12 Respiratory Rate 18 08/06/18 10:12 Blood Pressure 196/96 H 08/06/18 10:12 O2 Sat by Pulse Oximetry (%) labs pending aaox3 ambulating no acute distress V/S noted Assessment: 08/06/18 10:16 withdrawal sx Plan: continue detox increase fluids BP medication has been increased. BP is being monitored
[2018-08-06] MEDS: NICOTINE 7 MG/24 HOURS TOPICAL PATCH TD SCH (10:26)
[2018-08-06] MEDS: PRENATAL VITAMINS W/ FOLIC ACID TABLET (FP) PO SCH (10:26)
[2018-08-06] MEDS: amLODIPine BESYLATE 10 MG TABLET (FP) PO SCH (10:28)
[2018-08-06] MEDS: LISINOPRIL 10 MG TABLET (FP) PO SCH (11:28)
[2018-08-06 12:43] LABS: HEMATOCRIT 37.3 % (32.4-45.2); HEMOGLOBIN 12.5 GM/dL (10.7-15.3); MCH 28.9 pg (25.7-33.7); MCHC 33.5 g/dl (32.0-36.0); MEAN CELL VOLUME 86.4 fl (80-96); MEAN PLT VOLUME 9.2 fl (7.5-11.1); PLATELET COUNT 222 K/MM3 (134-434); RBC 4.32 M/mm3 (3.60-5.2); RDW 14.3 % (11.6-15.6); WHITE BLOOD COUNT 5.4 K/mm3 (4.0-10.0)
[2018-08-06 12:46] LABS: ALBUMIN 3.5 g/dl (3.4-5.0); ALK PHOS 102 U/L (45-117); ANION GAP 4 MMOL/L (8-16); BILIRUBIN,TOTAL 0.2 mg/dL (0.2-1); BLOOD UREA NITROGEN 11 mg/dL (7-18); CALCIUM 8.7 mg/dL (8.5-10.1); CHLORIDE 104 mmol/L (98-107); CO2 29 mmol/L (21-32); CREATININE 0.8 mg/dL (0.55-1.3); GLUCOSE,RANDOM 95 mg/dL (74-106); SGOT/AST 15 U/L (15-37); SGPT/ALT 12 U/L (13-61); SODIUM 137 mmol/L (136-145); TOT PROT 8.8 g/dl (6.4-8.2)
[2018-08-06] MEDS: MELATONIN 5 MG TABLETS PO PRN (22:27)
[2018-08-06] MEDS: THIAMINE HCL 100 MG TABLET (FP) PO SCH (22:27)
[2018-08-06] MEDS: diazePAM 5 MG TABLET PO PRN (22:27)
[2018-08-07] MEDS: CEPHALEXIN MONOHYDRATE 500 MG CAPSULE (UD) PO SCH ×4 (06:08→23:07)
[2018-08-07] MEDS ORDERED: METHADONE HCL 5 MG TABLET (FOR DETOX USE ONLY) PO ONE (10:00)
[2018-08-07] MEDS: NICOTINE 7 MG/24 HOURS TOPICAL PATCH TD SCH (10:44)
[2018-08-07] MEDS: LISINOPRIL 10 MG TABLET (FP) PO SCH (10:44)
[2018-08-07] MEDS: PRENATAL VITAMINS W/ FOLIC ACID TABLET (FP) PO SCH (10:44)
[2018-08-07] MEDS: amLODIPine BESYLATE 10 MG TABLET (FP) PO SCH (10:45)
--- NOTE | 2018-08-07 11:23 | PN ---
[facility] COWS - Scale Resting Pulse: 0= [place] 80 or Below Sweatin=Flushed/Facial Moisture Restless Observation: 1= Difficult to Sit Still Pupil Size: 0= Normal to Room Light Bone or Joint Aches: 2= Severe Diffuse Aches Runny Nose/ Eye Tearin= Nasal Congestion GI Upset > 30mins: 0= None Tremor Observation of Outstretched Hands: 1= Tremor [place], Not Seen Yawning Observation: 1= 1-2x During Session Anxiety or Irritability: 2=Irritable/Anxious Goose Flesh Skin: 0=Smooth Skin COWS Score: 10 [facility] Progress Note (SOAP) Subjective: irritable agitation anxiety sweats body aches/muscle twitches can i get ensure Objective: 08/07/18 11:21 Vital Signs Temperature 98.3 F 08/07/18 09:32 Pulse Rate 68 08/07/18 09:32 Respiratory Rate 16 08/07/18 09:32 Blood Pressure 163/91 08/07/18 09:32 O2 Sat by Pulse Oximetry (%) Laboratory Tests 08/06/18 08/06/18 08/06/18 07:00 07:00 07:00 WBC 5.4 RBC 4.32 Hgb 12.5 Hct 37.3 MCV 86.4 MCH 28.9 MCHC 33.5 RDW 14.3 Plt Count 222 MPV 9.2 Sodium 137 Potassium 4.0 Chloride 104 Carbon Dioxide 29 Anion Gap 4 L BUN 11 Creatinine 0.8 Creat Clearance w eGFR > 60 Random Glucose 95 Calcium 8.7 Total Bilirubin 0.2 AST 15 ALT 12 L Alkaline Phosphatase 102 Total Protein 8.8 H Albumin 3.5 RPR Titer Nonreactive aaox3 ambulating no acute distress Assessment: 08/07/18 11:22 withdrawal sx Plan: continue detox increase fluids baclofen tid motrin/tyleol prn ensure bid clonidine 0.1mg bid
[2018-08-07] MEDS: cloNIDine HCL 0.1 MG TABLET PO SCH ×2 (12:28→22:20)
[2018-08-07] MEDS: BACLOFEN 10 MG TABLET (FP) PO SCH ×2 (15:25→22:20)
[2018-08-07] MEDS: THIAMINE HCL 100 MG TABLET (FP) PO SCH (22:20)
[2018-08-07] MEDS: MELATONIN 5 MG TABLETS PO PRN (22:20)
[2018-08-07] MEDS: diazePAM 5 MG TABLET PO PRN (22:20)
[2018-08-08] MEDS: BACLOFEN 10 MG TABLET (FP) PO SCH ×3 (06:43→22:18)
[2018-08-08] MEDS: CEPHALEXIN MONOHYDRATE 500 MG CAPSULE (UD) PO SCH ×4 (06:43→23:06)
[2018-08-08] MEDS ORDERED: METHADONE HCL 5 MG TABLET (FOR DETOX USE ONLY) PO ONE (10:00)
[2018-08-08] MEDS: LISINOPRIL 10 MG TABLET (FP) PO SCH (10:08)
[2018-08-08] MEDS: amLODIPine BESYLATE 10 MG TABLET (FP) PO SCH (10:08)
[2018-08-08] MEDS: cloNIDine HCL 0.1 MG TABLET PO SCH ×2 (10:08→22:18)
[2018-08-08] MEDS: PRENATAL VITAMINS W/ FOLIC ACID TABLET (FP) PO SCH (10:08)
[2018-08-08] MEDS: NICOTINE 7 MG/24 HOURS TOPICAL PATCH TD SCH (10:09)
--- NOTE | 2018-08-08 11:27 | PN ---
[facility] Progress Note (SOAP) Subjective: irritable sweats Objective: 08/08/18 11:26 Vital Signs Temperature 97.9 F 08/08/18 09:45 Pulse Rate 68 08/08/18 09:45 Respiratory Rate 19 08/08/18 09:45 Blood Pressure 163/93 08/08/18 09:45 O2 Sat by Pulse Oximetry (%) aaox3 ambulating no acute distress Assessment: 08/08/18 11:26 withdrawal sx Plan: continue detox increase fluids
--- NOTE | 2018-08-08 16:58 | EKG ---
Test Reason : Blood Pressure : / mmHG Vent. Rate : 057 BPM Atrial Rate : 057 BPM P-R Int : 174 ms QRS Dur : 086 ms QT Int : 460 ms P-R-T Axes : 081 060 040 degrees QTc Int : 447 ms SINUS BRADYCARDIA NONSPECIFIC T WAVE ABNORMALITY ABNORMAL ECG NO PREVIOUS ECGS AVAILABLE Confirmed by VALERIE BAGLEY, RAKAN ([id number]) on 08/08/2018 4:58:34 PM Referred By: FREDA NEVES Confirmed By:RAKAN PADILLA MD
[2018-08-08] MEDS: THIAMINE HCL 100 MG TABLET (FP) PO SCH (22:18)
[2018-08-08] MEDS: MELATONIN 5 MG TABLETS PO PRN (22:19)
[2018-08-09] MEDS: CEPHALEXIN MONOHYDRATE 500 MG CAPSULE (UD) PO SCH (05:29)
[2018-08-09] MEDS: BACLOFEN 10 MG TABLET (FP) PO SCH (05:29)
[2018-08-09 06:28] VITALS: BP 121/103; PULSE 63; TEMP 97.9
[2018-08-09] MEDS ORDERED: METHADONE HCL 10 MG TABLET (FOR DETOX USE ONLY) PO ONE (10:00)
[2018-08-10] MEDS ORDERED: METHADONE HCL 5 MG TABLET (FOR DETOX USE ONLY) PO ONE (06:00)
== END 2018-08-09 06:07 | disposition home or self-care (01) | DRG 773 ==
LOC: YASAS 13:36 → Y6N 21:30
PROVIDERS: ADMIT Surgery; ATTEND Surgery
PROC: HZ2ZZZZ Detoxification Services for Substance Abuse Treatment (ICD-10-PCS; principal; 2018-08-05)
DX: F11.23 Opioid dependence with withdrawal (principal); F12.20 Cannabis dependence, uncomplicated; F17.210 Nicotine dependence, cigarettes, uncomplicated; Z21 Asymptomatic human immunodeficiency virus [HIV] infection status; G47.00 Insomnia, unspecified; L03.114 Cellulitis of left upper limb
CPT/HCPCS: 36415; 80053; 85027; 86593; 93005; 93010; J0475; J0735

== ENCOUNTER 2018-10-22 11:04 | Inpatient (IN) | payer OTHER ==
[2018-10-22 11:41] VITALS: BMI 21.2
--- NOTE | 2018-10-22 13:15 | HP ---
COWS - Scale Resting Pulse: 1= [place] 81-100 Sweatin= Chills/Flushing Restless Observation: 0= Sits Still Pupil Size: 0= Normal to Room Light Bone or Joint Aches: 0= None Runny Nose/ Eye Tearin= Runny Nose/Eyes GI Upset > 30mins: 0= None Tremor Observation: 0= None Yawning Observation: 0= None Anxiety or Irritability: 2=Irritable/Anxious Goose Flesh Skin: 0=Smooth Skin COWS Score: 6 CIWA Score - Admission Criteria OASAS Guidelines: Admission for Medically Managed Detox: Requires at least one of the followin. CIWA greater than 12 2. Seizures within the past 24 hours 3. Delirium tremens within the past 24 hours 4. Hallucinations within the past 24 hours 5. Acute intervention needed for co occurring medical disorder 6. Acute intervention needed for co occurring psychiatric disorder 7. Severe withdrawal that cannot be handled at a lower level of care (continued vomiting, continued diarrhea, abnormal vital signs) requiring intravenous medication and/or fluids 8. Admission ROS [facility] Allergies/Adverse Reactions: Allergies Allergy/AdvReac Type Severity Reaction Status Date / Time No Known Allergies Allergy Verified 10/22/18 11:26 History of Present Illness: pt here requesting detox from heroin use , reports 5-10 bags /day IVDU , latest use 8 am today , current symptoms as above, needles from the exchange , denies sharing , + re-using , had abscess 2018 had abx tx , denies OD , first age of use 16 , longest sobriety 3 years intermittently , longest 1 year . Previous detox at this facility 2 x in 2019 . cannabis use -1 /week denies MMTP , past MMtP in [facility] 2009 , highest dose 100 mg w/ continued use fentanyl - admits to use methadone - admits to illicit use oxy - denies xanax - admits to use 1 x , not daily use etoh - occasional use tobacco - 12 cigs/ day denies cocaine use . PMHX : denies PSH ; tonsillectomy psych : denies meds - denies SHx : lives alone Exam Limitations: Clinical Condition, Intoxication - Ebola screening Have you traveled outside of the country in the last 21 days: No (N) Have you had contact with anyone from an Ebola affected area: No Do you have a fever: No - Review of Systems Constitutional: See HPI EENT: reports: See HPI Respiratory: reports: No Symptoms reported Cardiac: reports: No Symptoms Reported GI: reports: See HPI : reports: No Symptoms Reported Musculoskeletal: reports: No Symptoms Reported Neuro: reports: See HPI Endocrine: reports: No Symptoms Reported Psychiatric: reports: Anxious Patient History - Patient Medical History Hx Anemia: No Hx Asthma: No Hx Chronic Obstructive Pulmonary Disease (COPD): No Hx Cancer: No Hx Cardiac Disorders: No Hx Congestive Heart Failure: No Hx Hypertension: Yes (TREATED WITH NORVASC) Hx Pacemaker: No HX Cerebrovascular Accident: No Hx Seizures: No Hx Dementia: No Hx Diabetes: No Hx Gastrointestinal Disorders: No Hx Liver Disease: No Hx Genitourinary Disorders: No Hx Sexually Transmitted Disorders: No Hx Renal Disease (ESRD): No Hx Thyroid Disease: No Hx Human Immunodeficiency Virus (HIV): Yes (2002-tx'ed at [facility]-on tx can't recall names ) Hx Hepatitis C: No Hx Depression: No Hx Suicide Attempt: No Hx Bipolar Disorder: No Hx Schizophrenia: No - Patient Surgical History Past Surgical History: No Hx Neurologic Surgery: No Hx Cataract Extraction: No Hx Cardiac Surgery: No Hx Lung Surgery: No Hx Breast Surgery: No Hx Breast Biopsy: No Hx Abdominal Surgery: No Hx Appendectomy: No Hx Cholecystectomy: No Hx Genitourinary Surgery: No Hx Section: No Hx Orthopedic Surgery: No Anesthesia Reaction: No - PPD History Date: 08/07/18 - Reproductive History Last Menstrual Period: 07/03/07 - Smoking Cessation Smoking history: Current every day smoker Have you smoked in the past 12 months: Yes Aproximately how many cigarettes per day: 5 Cigars Per Day: 0 Hx Chewing Tobacco Use: No Initiated information on smoking cessation: No - Substances abused Heroin Substance route: Injection Frequency: Daily Amount used: 5-10NBAGS Age of first use: 16 Date of last use: 10/22/18 Marijuana/Hashish Substance route: Smoking Frequency: 1-3 times last 30 days Amount used: $3 Age of first use: 13 Date of last use: 10/21/18 Family Disease History - Family Disease History Family Disease History: Diabetes: Mother, Other: Sister (chrons disease ) Admission Physical Exam [facility] - Vital Signs Vital Signs: Vital Signs - 24 hr 10/22/18 11:29 Temperature 97.1 F L Pulse Rate 82 Respiratory 18 Rate Blood Pressure 106/72 - Physical General Appearance: Yes: Mild Distress, Irritable, Anxious HEENTM: Yes: EOMI, Hearing grossly Normal, Normocephalic, Normal Voice Respiratory: Yes: Chest Non-Tender, Lungs Clear, Normal Breath Sounds Neck: Yes: No masses,lesions,Nodules, Trachea in good position Cardiology: Yes: Regular Rhythm, Regular Rate, S1, S2 Abdominal: Yes: Non Tender, Soft Musculoskeletal: Yes: Gait Steady Extremities: Yes: Normal Range of Motion, Erythema (right FA @ IVDU site w/ mild tenderness to palaption , + pulse intact , no d/c ,no abscess) Neurological: Yes: Alert, Motor Strength 5/5 Integumentary: Yes: Warm, Track Angulo - Diagnostic (1) Opioid dependence with withdrawal Current Visit: Yes Status: Acute (2) Cannabis dependence Current Visit: Yes Status: Chronic (3) Nicotine dependence Current Visit: Yes Status: Chronic Qualifiers: Nicotine product type: cigarettes Breathalyzer - Breathalyzer Breathalyzer: 0 POC Urine test - Test device test lot number: [id number] Expiration date: 12/08/18 - Control test control: No Urine Drug Screen - Test Device Lot number: [id number] Expiration date: 07/11/20 - Control Is test valid?: Yes - Results Drug screen NEGATIVE: No Urine drug screen results: THC-Marijuana, FEN-Fentanyl, MOP-Opiates, OXY- Oxycodone, MTD-Methadone, BZO-Benzodiazepines Inpatient Rehab Admission - Rehab Decision to Admit Inpatient rehab admission?: No
[2018-10-22] MEDS ORDERED: MAGNESIUM CITRATE 300 ML BOTTLE PO PRN (13:33)
[2018-10-22] MEDS ORDERED: DICYCLOMINE HCL 10 MG CAPSULE PO PRN (13:33)
[2018-10-22] MEDS ORDERED: cloNIDine HCL 0.1 MG TABLET PO PRN (13:33)
[2018-10-22] MEDS ORDERED: BISMUTH SUBSALICYLATE 262 MG/15 ML BTL PO PRN (13:33)
[2018-10-22] MEDS ORDERED: MAG HYDROX/AL HYDROX/SIMETH 30 ML UNIT-DOSE CUP PO PRN (13:33)
[2018-10-22] MEDS ORDERED: MENTHOL/PHENOL 1 EACH UD MM PRN (13:33)
[2018-10-22] MEDS ORDERED: NICOTINE POLACRILEX 2 MG GUM BUC PRN (13:33)
[2018-10-22] MEDS ORDERED: hydrOXYzine PAMOATE 25 MG CAPSULE (FP) PO PRN (13:33)
[2018-10-22] MEDS ORDERED: IBUPROFEN 400 MG TABLET (FP) PO PRN (13:33)
[2018-10-22] MEDS ORDERED: MAGNESIUM HYDROX 2400MG/30ML ORAL SUSPENSION 30 ML CUP PO PRN (13:33)
[2018-10-22] MEDS ORDERED: ACETAMINOPHEN 325 MG TABLET (FP) PO PRN ×2 (13:33)
[2018-10-22] MEDS: CEPHALEXIN MONOHYDRATE 500 MG CAPSULE (UD) PO SCH (18:11)
[2018-10-22] MEDS: THIAMINE HCL 100 MG TABLET (FP) PO SCH (22:38)
[2018-10-22] MEDS ORDERED: METHADONE HCL 10 MG TABLET (FOR DETOX USE ONLY) PO ONE (23:00)
[2018-10-22 23:21] LABS: HEMATOCRIT 37.3 % (32.4-45.2); HEMOGLOBIN 11.8 GM/dL (10.7-15.3); MCH 28.2 pg (25.7-33.7); MCHC 31.7 g/dl (32.0-36.0); MEAN CELL VOLUME 88.9 fl (80-96); WHITE BLOOD COUNT 6.8 K/mm3 (4.0-10.0)
[2018-10-22 23:40] LABS: ALBUMIN 3.6 g/dl (3.4-5.0); BILIRUBIN,TOTAL 0.3 mg/dL (0.2-1); CALCIUM 9.1 mg/dL (8.5-10.1); CREATININE 1.1 mg/dL (0.55-1.3); POTASSIUM 3.6 mmol/L (3.5-5.1); TOT PROT 8.7 g/dl (6.4-8.2)
[2018-10-22 23:57] LABS: PLATELET COUNT 205 K/MM3 (134-434)
[2018-10-22 23:58] LABS: MEAN PLT VOLUME 9.4 fl (7.5-11.1)
[2018-10-23] MEDS: CEPHALEXIN MONOHYDRATE 500 MG CAPSULE (UD) PO SCH ×5 (00:23→23:32)
[2018-10-23] MEDS ORDERED: METHADONE HCL 5 MG TABLET (FOR DETOX USE ONLY) PO ONE (10:00)
[2018-10-23] MEDS ORDERED: METHADONE HCL 10 MG TABLET (FOR DETOX USE ONLY) PO ONE (10:00)
--- NOTE | 2018-10-23 10:07 | PN ---
[facility] COWS - Scale Resting Pulse: 0= [place] 80 or Below Sweatin=Flushed/Facial Moisture Restless Observation: 1= Difficult to Sit Still Pupil Size: 0= Normal to Room Light Bone or Joint Aches: 2= Severe Diffuse Aches Runny Nose/ Eye Tearin= Nasal Congestion GI Upset > 30mins: 1= Stomach Cramp Tremor Observation of Outstretched Hands: 2= Slight Tremor Visible Yawning Observation: 2= >3x During Session Anxiety or Irritability: 2=Irritable/Anxious Goose Flesh Skin: 0=Smooth Skin COWS Score: 13 [facility] Progress Note (SOAP) Subjective: irritable agitation anxiety sweats shakes interrupted sleep this low dose of methadone is not helping me Objective: 10/23/18 10:06 Vital Signs Temperature 97.5 F L 10/23/18 09:30 Pulse Rate 60 10/23/18 09:30 Respiratory Rate 18 10/23/18 09:30 Blood Pressure 164/88 10/23/18 09:30 O2 Sat by Pulse Oximetry (%) Laboratory Tests 10/22/18 10/22/18 10/22/18 14:05 14:05 14:15 WBC 6.8 RBC 4.20 Hgb 11.8 Hct 37.3 MCV 88.9 MCH 28.2 MCHC 31.7 L RDW 15.0 Plt Count 205 MPV 9.4 Sodium 137 Potassium 3.6 Chloride 104 Carbon Dioxide 29 Anion Gap 4 L BUN 14 Creatinine 1.1 Est GFR (CKD-EPI)AfAm 64.09 Est GFR (CKD-EPI)NonAf 55.30 Random Glucose 100 Calcium 9.1 Total Bilirubin 0.3 AST 20 ALT 12 L Alkaline Phosphatase 77 Total Protein 8.7 H Albumin 3.6 RPR Titer Nonreactive aaox3 ambulating no acute distress Assessment: 10/23/18 10:07 withdrawal sx Plan: continue detox with revised methadone detox increase fluids pending labs
[2018-10-23] MEDS: PRENATAL VITAMINS W/ FOLIC ACID TABLET (FP) PO SCH (10:32)
[2018-10-23] MEDS: THIAMINE HCL 100 MG TABLET (FP) PO SCH (22:19)
[2018-10-23] MEDS: MELATONIN 5 MG TABLETS PO PRN (22:20)
[2018-10-24] MEDS: CEPHALEXIN MONOHYDRATE 500 MG CAPSULE (UD) PO SCH ×4 (06:14→23:03)
[2018-10-24] MEDS ORDERED: METHADONE HCL 10 MG TABLET (FOR DETOX USE ONLY) PO ONE ×2 (10:00)
[2018-10-24] MEDS: PRENATAL VITAMINS W/ FOLIC ACID TABLET (FP) PO SCH (10:17)
[2018-10-24] MEDS: cloNIDine HCL 0.1 MG TABLET PO SCH ×2 (10:18→22:24)
--- NOTE | 2018-10-24 12:46 | PN ---
[facility] COWS - Scale Resting Pulse: 1= [place] 81-100 Sweatin=Flushed/Facial Moisture Restless Observation: 1= Difficult to Sit Still Pupil Size: 0= Normal to Room Light Bone or Joint Aches: 2= Severe Diffuse Aches Runny Nose/ Eye Tearin= Nasal Congestion GI Upset > 30mins: 0= None Tremor Observation of Outstretched Hands: 2= Slight Tremor Visible Yawning Observation: 1= 1-2x During Session Anxiety or Irritability: 2=Irritable/Anxious Goose Flesh Skin: 0=Smooth Skin COWS Score: 12 [facility] Progress Note (SOAP) Subjective: body aches sweats shakes interrupted sleep Objective: 10/24/18 12:45 Vital Signs Temperature 97.5 F L 10/24/18 10:46 Pulse Rate 84 10/24/18 10:46 Respiratory Rate 18 10/24/18 10:46 Blood Pressure 151/82 10/24/18 10:46 O2 Sat by Pulse Oximetry (%) Laboratory Tests 10/22/18 10/22/18 10/22/18 12:37 14:05 14:05 WBC 6.8 RBC 4.20 Hgb 11.8 Hct 37.3 MCV 88.9 MCH 28.2 MCHC 31.7 L RDW 15.0 Plt Count 205 MPV 9.4 Sodium Potassium Chloride Carbon Dioxide Anion Gap BUN Creatinine Est GFR (CKD-EPI)AfAm Est GFR (CKD-EPI)NonAf Random Glucose Calcium Total Bilirubin AST ALT Alkaline Phosphatase Total Protein Albumin POC Urine HCG, Qual Negative RPR Titer Nonreactive 10/22/18 14:15 WBC RBC Hgb Hct MCV MCH MCHC RDW Plt Count MPV Sodium 137 Potassium 3.6 Chloride 104 Carbon Dioxide 29 Anion Gap 4 L BUN 14 Creatinine 1.1 Est GFR (CKD-EPI)AfAm 64.09 Est GFR (CKD-EPI)NonAf 55.30 Random Glucose 100 Calcium 9.1 Total Bilirubin 0.3 AST 20 ALT 12 L Alkaline Phosphatase 77 Total Protein 8.7 H Albumin 3.6 POC Urine HCG, Qual RPR Titer aaox3 ambulating no acute distress Assessment: 10/24/18 12:46 withdrawal sx Plan: continue detox increase fluids clonidine 0.1mg bid with parameters
[2018-10-24] MEDS ORDERED: traZODone HCL 50 MG TABLET (FP) PO SCH (22:00)
[2018-10-24] MEDS: THIAMINE HCL 100 MG TABLET (FP) PO SCH (22:24)
[2018-10-24] MEDS: MELATONIN 5 MG TABLETS PO PRN (22:26)
[2018-10-25] MEDS ORDERED: METHADONE HCL 5 MG TABLET (FOR DETOX USE ONLY) PO ONE ×2 (06:00→10:03)
[2018-10-25] MEDS: CEPHALEXIN MONOHYDRATE 500 MG CAPSULE (UD) PO SCH ×4 (06:48→23:01)
[2018-10-25] MEDS ORDERED: cloNIDine HCL 0.1 MG TABLET PO ONE (07:10)
--- NOTE | 2018-10-25 07:15 | PN ---
S Progress Note Note: Patient's blood pressure is B/P 188/113. Patient is asymptomatic Vital Signs Temperature 97.3 F L 10/25/18 07:08 Pulse Rate 62 10/25/18 07:08 Respiratory Rate 10/25/18 07:08 Blood Pressure 188/113 H 10/25/18 07:08 O2 Sat by Pulse Oximetry (%) Action:Clonidine 0.1mg tablet oral ordered
[2018-10-25] MEDS: PRENATAL VITAMINS W/ FOLIC ACID TABLET (FP) PO SCH (10:30)
--- NOTE | 2018-10-25 13:12 | PN ---
BHS Progress Note (SOAP) Subjective: feeling much better little sweats Objective: 10/25/18 13:11 Vital Signs Temperature 97.9 F 10/25/18 09:23 Pulse Rate 62 10/25/18 09:23 Respiratory Rate 19 10/25/18 09:23 Blood Pressure 138/78 10/25/18 09:23 O2 Sat by Pulse Oximetry (%) aaox3 ambulating no acute distress Assessment: 10/25/18 13:11 mild withdrawal sx Plan: continue detox increase fluids rx for htn and abx sent to pharmacy of her choice d/c at 7am as per pt request.
[2018-10-25] MEDS ORDERED: amLODIPine BESYLATE 5 MG TABLET (FP) PO SCH (14:10)
[2018-10-25] MEDS ORDERED: traZODone HCL 50 MG TABLET (FP) PO ONE (22:00)
[2018-10-25] MEDS: THIAMINE HCL 100 MG TABLET (FP) PO SCH (22:14)
[2018-10-26] MEDS: CEPHALEXIN MONOHYDRATE 500 MG CAPSULE (UD) PO SCH (05:49)
[2018-10-26] MEDS ORDERED: METHADONE HCL 10 MG TABLET (FOR DETOX USE ONLY) PO ONE (06:00)
[2018-10-26 06:22] VITALS: BP 155/111; PULSE 77; TEMP 96.6
== END 2018-10-26 07:20 | disposition home or self-care (01) | DRG 773 ==
LOC: YASAS 11:04 → Y6N 14:02
PROVIDERS: ADMIT Surgery; ATTEND Surgery
PROC: HZ2ZZZZ Detoxification Services for Substance Abuse Treatment (ICD-10-PCS; principal; 2018-10-22)
DX: F11.23 Opioid dependence with withdrawal (principal); F12.20 Cannabis dependence, uncomplicated; F17.210 Nicotine dependence, cigarettes, uncomplicated; I10 Essential (primary) hypertension; Z21 Asymptomatic human immunodeficiency virus [HIV] infection status
CPT/HCPCS: 36415; 80053; 81025; 85027; 86593; J0735